=== PATIENT | female | born 1995 | race American Indian/Alaskan Native ===

== ENCOUNTER 2018-06-25 11:56 | Emergency (ER) | payer MEDICAID, OTHER ==
[2018-06-25 12:24] VITALS: BP 122/73
[2018-06-25] MEDS ORDERED: ULTRAM PO ONE (16:11)
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
[2018-06-25 17:21] LABS: HCG Qualitative,Urine Positive (Negative)
[2018-06-25] MEDS ORDERED: NORCO 5/325 ONE (18:00)
[2018-06-25] MEDS ORDERED: ZOFRAN ODT ONE (18:00)
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
== END 2018-06-25 19:50 | disposition home or self-care (01) ==
LOC: ED 11:56
DX: O9A.22 Injury, poisoning and certain other consequences of external causes complicating childbirth (principal); S00.03XA Contusion of scalp, initial encounter; S13.4XXA Sprain of ligaments of cervical spine, initial encounter; S39.012A Strain of muscle, fascia and tendon of lower back, initial encounter; Z88.8 Allergy status to other drugs, medicaments and biological substances; Z88.6 Allergy status to analgesic agent; Z91.010 Allergy to peanuts; Z3A.01 Less than 8 weeks gestation of pregnancy; V89.2XXA Person injured in unspecified motor-vehicle accident, traffic, initial encounter; Y93.89 Activity, other specified; Y92.488 Other paved roadways as the place of occurrence of the external cause; Y99.8 Other external cause status
CPT/HCPCS: 36415; 70450; 81025; 84702; 99284; Q0162